=== PATIENT | male | born 1950 | race Caucasian/White ===

== ENCOUNTER 2025-04-13 19:24 | Observation (INO) | payer MEDICARE, OTHER, SELFPAY ==
[2025-04-13 14:00] VITALS: BP 139/78
[2025-04-13 14:36] VITALS: BMI 28.1
--- NOTE | 2025-04-13 14:39 | ED.GENMED ---
History of Present Illness
General
Chief Complaint: Visual Problem
Source: patient
Exam Limitations: none
Time Seen by Provider: 04/13/25 14:12
Nursing documentation reviewed up to this point in time: agreed with
History of Present Illness
History of Present Illness:
74-year-old male with history of hypertension, hemochromatosis, essential tremor on propranolol who presents to the emergency department with his for evaluation after transient vision loss. Patient reports that this occurred yesterday while he
was driving. He reports that he noticed that his upper visual field in the right eye went 'colbert' and this eventually progressed to the entire eye and he reports complete vision loss in the right eye. He says that his vision then gradually return
to normal, total duration of vision loss he says was roughly 10 minutes. He says that his vision is now completely back at baseline. He did not have any associated numbness or weakness in extremities, speech issues, headache, neck pain, or any
other acute issues during this episode. He says he had a similar episode about a year ago that was much shorter and only resulted in partial vision loss in the right eye and so he never sought care at that time. Today he went to his eye
doctor�there he had reassuring examination (reviewed office note) and was referred to the ER with concern for TIA as cause for his symptoms.
Past History
Past History
ED Past Medical History: HTN and Other (Hemachromatosis)
ED Past Surgical History: Orthopedic, Urological and Other (Vein ablation of right lower leg)
Social History
Tobacco: Non-smoker
Drug: None
Personal:
Living: with family
Employment: Employed
Family History
Family History: Other
Review of Systems
Review of Systems
All Other Systems: ROS reviewed and negative except as documented in HPI and ROS
EENT: Reports other (Vision loss)
Respiratory: Denies trouble breathing
Cardiac: Denies chest pain
ABD/GI: Denies abdominal pain
: Denies flank pain
Musculoskeletal: Denies neck pain or back pain
Neurological: Denies dizzy, headache, weakness or numbness
Phy Exam
Physical Exam
Physical Exam:
General: Awake, alert, oriented x3; no acute distress
Head: Normocephalic, atraumatic
Eyes: Conjunctiva normal, EOMI, pupils dilated and sluggish bilaterally (patient just had dilated eye exam in the office--ophthalmology office note scanned into medical record)
Throat: Airway intact, handling secretions
Neck: Trachea midline, supple without meningismus
Lungs: Clear to auscultation bilaterally, no wheezing, rales, rhonchi
Heart: Regular rate and rhythm, no murmurs, gallops, or rubs
Neuro: Cranial nerves intact 2 through 12, speech fluid without dysarthria or aphasia, no limb ataxia, motor and sensory intact in all extremities proximally and distally, ambulatory with no ataxia
Skin: No rash noted
Extremities: No edema in extremities, warm and well-perfused
Scores
Heart Failure Risk
Heart Failure Risk Score: Not Applicable
Heart Score for Chest Pain Patients
STEMI patient?: Not applicable
Withdrawal Assessment of Alcohol
Withdrawal Assessment Completed?: Not applicable
Course
Orders/Labs/Results
Orders:
Orders
04/13/25 14:15
Electrocardiogram (*1) Urgent
Reason for Study: TIA/Stroke
EKG- Treatment ONCE
04/13/25 14:32
CT Head & Neck Angio W/wo IV Urgent
Comment:
Reason For Exam: vision loss R eye
04/13/25 14:43
Complete Blood Count/With Diff Urgent
Comprehensive Metabolic Panel Urgent
04/13/25 16:55
NEUROLOGY CONSULT Urgent
Consulting Provider: German Issa
Was physician already notified: Yes
Aspirin 325 mg PO NOW STA
Clopidogrel Bisulfate [Plavix] 75 mg PO NOW STA
Abnormal Lab Results
04/13/25
14:43
RBC 3.76 L 10^6/uL
(4.70-6.10)
Hct 37.5 L %
(39.0-52.0)
MCV 99.7 H fL
(80.0-94.0)
MCH 35.4 H pg
(27.0-31.0)
Monocytes % 10.2 H %
(1.7-9.3)
Sodium 132 L mmol/L
(135-145)
04/13/25 14:43
04/13/25 14:43
Vital Signs
Initial and Last Documented VS:
Initial Vital Signs
Temp Pulse Resp BP Pulse Ox
36.4 C 56 16 139/78 98
04/13/25 14:00 04/13/25 14:00 04/13/25 14:00 04/13/25 14:00 04/13/25 14:00
Last Documented Vital Signs
Temp Pulse Resp BP Pulse Ox
36.4 C 51 13 139/78 97
04/13/25 14:00 04/13/25 17:30 04/13/25 17:30 04/13/25 14:00 04/13/25 17:30
MDM/Problems Addressed
Differential Diagnosis Includes:
TIA, ocular migraine, seizure
MDM/Problems Addressed:
74-year-old male presents for evaluation after transient vision loss in the right eye yesterday that lasted for about 10 minutes and since has completely resolved. Seen by his zigzag machine operator today and referred to the ER with concern for TIA. I
reviewed ophthalmology note patient had reportedly reassuring examination in the office today including retinal exam. Vitals and exam here in the ER are as documented. Will plan to check CT/CTA of the head and neck. Will check labs and EKG.
Reassess after the above.
ABCD2 score: 1 (low risk)
Labs reviewed: CBC unremarkable, CMP no clinically significant abnormalities. 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 Will treat with aspirin and Plavix.
Discussed with neurology for consultation. Discussed with hospitalist for admission.
Chronic conditions affecting care:
Hypertension
*Radiology
Radiology exam reviewed: radiology read reviewed
*Pulse Oximetry
SaO2: 98
Oxygen Mode of Delivery: Room air
Patient hypoxic: no (98%)
*EKG
Interpreted by ED Provider?: Yes
Comparison EKG: no changes
Heart Rate: 52
Rate: bradycardiac
Rhythm: sinus
[place]: normal axis
Interval: first degree heart block
QRS Pattern: normal QRS
Ischemia: no ischemia (No change from prior)
*Critical Care Note
Total Time (30-74mins, 75-104mins- exclusive of procedures): Not Applicable
Data Reviewed
Review of Other/Old Records Reveals: Progress Notes (Reviewed ophthalmology note from outpatient visit)
Source: patient and spouse
Patient Management
Discussion with other providers: Hospitalist (Discussed with hospitalist) and Automotive Engineer (Discussed with neurologist)
Escalation/DeEscalation of care consider admission/obs:
Admission indicated
ED Attending Note
-
Portions of this chart may have been created with voice recognition software.� Occasional wrong word or��sound alike� substitutions may have occurred due to the inherent limitations of voice recognition software.
Discharge Plan
Departure
Patient Disposition: Admit
Date of Disposition: 04/13/25
Time of Disposition: 17:58
Admit to doctor: Trudy
Presentation/result/management discussed w/ accepting MD/DO: Hospitalist
Discharge Problem:
TIA (transient ischemic attack)
Prescriptions:
No Action
propranolol 60 mg Capsule,Extended Release 24 Hr
60 mg PO BID
amlodipine [Norvasc] 5 mg Tablet
5 mg PO QPM
tamsulosin [Flomax] 0.4 mg Capsule
0.4 mg PO HS
ibuprofen [Advil] 200 mg Tablet
200 mg PO BIDPRN PRN (Reason: mild pain)
zolpidem [Ambien] 10 mg Tablet
10 mg PO HS
losartan 100 mg Tablet
100 mg PO DAILY
lorazepam 0.5 MG tablet
0.5 mg PO DAILYPRN PRN (Reason: anxiety)
Referrals:
German Sanchez MD [Family Provider, Internal Medicine]
Interventions
Interventions:
*Risk Screen - Suicide Last Done: 04/13/25 14:00
*General Assessment Last Done: 04/13/25 14:33
*Neglect/Abuse Screening Last Done: 04/13/25 14:00
*ED- Fall Risk Assessment Last Done: 04/13/25 14:33
*ED COVID-19 Vaccine History Last Done: 04/13/25 14:33
ED- Neurological Assessment Last Done: 04/13/25 14:52
ED-EENT Assessment Last Done: 04/13/25 14:34
ED Swallowing Screen Last Done: 04/13/25 17:16
Discharge Date and Time
Print Language: BULGARIAN
[2025-04-13 14:51] LABS: Hematocrit 37.5 % (39.0-52.0); Hemoglobin 13.3 g/dL (13.0-18.0); Mean Corp Hgb Conc. 35.5 g/dL (33.0-37.0); Mean Corpuscular Volume 99.7 fL (80.0-94.0); Nucleated Red Blood Cells % 0 % (-); Platelet Count 174 10^3/uL (130-400); Red Cell Dist. Width 11.9 % (11.5-14.5)
[2025-04-13 15:05] LABS: Albumin 4.3 g/dl (3.5-5.0); Carbon Dioxide 22 mmol/L (22-30); Chloride 104 mmol/L (98-107)
[2025-04-13 15:15] LABS: ALT (SGPT) 36 U/L (0-50); AST (SGOT) 30 U/L (17-59); Alkaline Phosphatase 73 U/L (38-126); Blood Urea Nitrogen 16 mg/dl (9-20); Calcium 9.3 mg/dl (8.4-10.2); Estimated Creatinine Clearance 98 ml/min; Glucose 97 mg/dl (70-99); Potassium 4.4 mmol/L (3.5-5.1); Sodium 132 mmol/L (135-145); Total Protein 7.2 g/dl (6.3-8.2); eGFR > 60.00
[2025-04-13] MEDS: PLAVIX 75 MG PO (18:08)
[2025-04-13] MEDS: ASPIRIN 325 MG PO (18:08)
--- NOTE | 2025-04-13 18:51 | HPS.HSE ---
Addendum entered and electronically signed by Damien Yates MD 04/13/25 19:39:
This is an addendum to H&P written by Olesya Small on 04/13/2025. �Patient seen and examined independently with PA.
74-year-old male past medical history of hypertension, hemochromatosis, essential tremor, presenting to the emergency room for transient vision loss occurring yesterday. �Upper visual field in the right eye became colbert which progressed to vision
loss in the right eye. �This lasted for 10 minutes with resolution. �No numbness or tingling, focal weakness, speech difficulty, headache, neck pain. �Similar episode 6 months ago.
He saw ophthalmology today who noted no eye abnormalities recommended coming to the hospital.
Vital signs unremarkable.
Labs unremarkable.
CT head shows no acute abnormality. �CTA head and neck shows severe stenosis of the origin of the right vertebral artery. �Plaque in the proximal left ICA less than 50% stenosis. �Mild spinal cord compression and central canal stenosis of cervical
spinal cord.
Patient with amaurosis fugax, unclear if related to right vertebral artery stenosis. �Currently asymptomatic. �Aspirin and Plavix, MRI brain, A1c and lipid panel. �Statin started. �Neurology consulted.
Slight bradycardia secondary to propranolol.
Original Note:
Family Physician
-
Family Physician: German Sanchez
Chief Complaint
-
Transient Vision Loss
History of Present Illness
Patient is a 74 y/o male past medical history of hypertension, essential tremor, insomnia and BPH who presents with transient vision loss. Yesterday while he was driving he describes a colbert curtain coming down over his right visual field. He was
able to pull into a parking lot, and states that eventually he lost all vision in his right eye. He states symptoms lasted about 10 minutes and then resolved. He reports his vision is at baseline. He saw his ophthamologist this morning who noted
a normal eye exam and sent him to the emergency department for evaluation. Patient reports a similar episode about 6 months to a year ago but at that time he only lost vision in the top portion of his visual field.
Medical History
Past Medical History
Past Medical History: Reports Other
Additional Past Medical History:
Essential Hypertension
Essential Tremor
Insomnia
BPH
Hemochromatosis
Past Surgical History: Reports Other
Additional Past Surgical History:
Right Knee Replacement
Shoulder Surgery
Social History
Tobacco: Non-smoker
Alcohol: Other (Two drinks either beer or wine most nights)
Personal:
Family History
Family History: Not pertinent
Allergies / Home Medications
Allergies reflects when Allergies were last updated in [facility].
Home Medications with original date entered in [facility]
Allergy/Medication List:
Allergies
Allergy/AdvReac Type Severity Reaction Status Date / Time
seasonal Allergy nasal Uncoded 04/13/25 14:03
congestion
Home Medications
amlodipine 5 mg tablet (Norvasc) 5 mg PO QPM 04/13/25
ibuprofen 200 mg tablet (Advil) 200 mg PO BIDPRN PRN mild pain 04/13/25
lorazepam 0.5 mg tablet 0.5 mg PO DAILYPRN PRN anxiety 04/13/25
losartan 100 mg tablet 100 mg PO DAILY 04/13/25
propranolol 60 mg capsule,24 hr,extended release 60 mg PO BID 04/13/25
tamsulosin 0.4 mg capsule (Flomax) 0.4 mg PO HS 04/13/25
zolpidem 10 mg tablet (Ambien) 10 mg PO HS 04/13/25
Review of Systems
-
A 12 point ROS was completed and negative except as noted: Yes
Constitutional: Denies Fever or Chills
Respiratory: Denies Cough or Trouble Breathing
Cardiac: Denies Chest Pain or Palpitations
Abdomen/GI: Denies Abdominal Pain, Nausea, Vomiting or Diarrhea
Physical Exam
Vital Signs
Vital Signs
Temp Pulse Resp BP Pulse Ox
97.5 F 51 13 139/78 97
04/13/25 14:00 04/13/25 17:30 04/13/25 17:30 04/13/25 14:00 04/13/25 17:30
Physical Exam
General: Comfortable and Conversant
HEENT: Anicteric, Moist mucous membranes and PERRLA
Respiratory: Clear and Non Labored Respirations
Cardiac: S1/S2, Regular Rhythm and Bradycardia (Slightly)
GI: Soft and Non Tender
Rectal: Deferred by Provider
Musculoskeletal: No Clubbing and No Cyanosis
Skin: Warm and Dry
Neuro: Awake, Alert, Oriented and Nonfocal/grossly intact
Psych: Calm
Laboratory Results
-
04/13/25 14:43
04/13/25 14:43
Laboratory Results
Total Bilirubin 0.9 mg/dl (0.2-1.3) 04/13/25 14:43
AST 30 U/L (17-59) 04/13/25 14:43
ALT 36 U/L (0-50) 04/13/25 14:43
Alkaline Phosphatase 73 U/L (38-126) 04/13/25 14:43
Data Reviewed
-
CT Scan: Report Reviewed by me
Lab Data: Labs Reviewed by me
Impression/Plan
-
Amaurosis Fugax
-Head/Neck CTA with 70% stenosis at origin of right vertebral artery - Unclear if contributing to symptoms
-Consult Neurology
-Check Brain MRI
-Check Lipid Panel and HgbA1c
-Continue aspirin and clopidogrel
Essential Hypertension
-Continue amlodipine and losartan
Essential Tremor
-Continue propranolol
Insomnia
-Continue zolpidem
BPH
-Continue tamsulosin
DVT Proph: SCDs
Code Status: Full Code
[2025-04-13 20:27] VITALS: BP 141/81; BMI 27.2
[2025-04-13] MEDS: INDERAL LA 60 MG PO (22:29)
[2025-04-13] MEDS: FLOMAX 0.4 MG PO (22:29)
[2025-04-13] MEDS: AMBIEN 10 MG PO (22:33)
[2025-04-13 23:00] VITALS: BP 133/72
--- NOTE | 2025-04-14 01:18 | PTCARENOTE ---
Pt received from ER [id number] able to make his needs known.Denies pain or any other complaints.NIH-0,pt denies of any visual problems at this time.Plan of care continued.Sttroke packet given to pt.Call rodriguez in reach.
[2025-04-14 03:35] VITALS: BP 123/77
[2025-04-14 06:52] LABS: Hematocrit 36.8 % (39.0-52.0); Hemoglobin 13.0 g/dL (13.0-18.0); Mean Corp Hgb Conc. 35.3 g/dL (33.0-37.0); Mean Corpuscular Volume 101.7 fL (80.0-94.0); Platelet Count 161 10^3/uL (130-400); Red Cell Dist. Width 11.7 % (11.5-14.5)
[2025-04-14 07:24] LABS: Blood Urea Nitrogen 12 mg/dl (9-20); Calcium 9.1 mg/dl (8.4-10.2); Carbon Dioxide 24 mmol/L (22-30); Chloride 107 mmol/L (98-107); Estimated Creatinine Clearance 86 ml/min; Glucose 93 mg/dl (70-99); HDL Cholesterol 48 mg/dl; LDL Cholesterol, Calculated 116 mg/dl; Magnesium 2.1 mg/dl (1.6-2.3); Potassium 4.3 mmol/L (3.5-5.1); Sodium 135 mmol/L (135-145); Very Low Density Lipoprotein 15 mg/dl (0-30); eGFR > 60.00
[2025-04-14 07:41] VITALS: BP 134/71
[2025-04-14] MEDS: INDERAL LA 60 MG PO (08:19)
[2025-04-14] MEDS: COZAAR 100 MG PO (08:19)
[2025-04-14] MEDS: LOW STRENGTH ASPIRIN 81 MG PO (08:19)
[2025-04-14] MEDS: PLAVIX 75 MG PO (08:19)
[2025-04-14 10:00] LABS: Glycohemoglobin (HgbA1c) 4.6 % (4.0-5.6)
[2025-04-14 11:04] VITALS: BP 142/92
[2025-04-14 11:32] VITALS: BP 144/86
--- NOTE | 2025-04-14 11:56 | CM ---
Met with patient and at bedside
Pharmacy verified: [facility] @ [address] [facility]
Lives w/ ; multilevel home; bedroom and bathroom on 1st floor; bathroom has shower stall w/ built in seat
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
No SNF or Home Health utilization history
will transport home
HERNANDEZ form explained; form signed @ [id number]
Plan: anticipate discharge to home; Case Management will monitor and support needs/services if recommended
[2025-04-14 13:41] VITALS: BP 137/83; PULSE 62; O2SAT 98
--- NOTE | 2025-04-14 14:25 | W.PN.UPDATE ---
Update Note
Progress Note Update
Seen and examined independently. Agree with the plan set forth by the resident. Discussed. See changes in my documentation
74-year-old man with symptoms of right eye transient vision loss. This has happened before
On examination patient is awake alert oriented x 3
Eye no visual field defect,
No facial droop
Cardiovascular system S1-S2 appreciated
Chest clear to auscultation
Abdomen soft and nontender
Neuroexam is mostly nonfocal
CTA neck-severe stenosis at the origin of the right vertebral artery more than 70%. Mild calcific atherosclerotic plaque in the proximal left ICA causing less than 50% diameter stenosis. Mild spinal cord compression C4/C5, C5/C6, C6/C7. Severe
right neural foraminal narrowing C5/C6. Asymmetric soft tissue in the right side of the oropharynx in the left vallecula
Head CTA-mild calcific atherosclerotic plaque in both intracranial internal carotid arteries. Mild periventricular and subcortical white matter leukoaraiosis in the both cerebral hemispheres. Mildly diffuse cerebral and cerebellar volume loss.
MRI of the brain-no acute infarct
# Transient vision loss
Possible TIA
Continue aspirin and Plavix with statin
MRI without any acute stroke
Patient does have atherosclerotic disease
Will discuss with neurology if patient needs further intervention with neurointerventional list for that right vertebral artery stenosis
May need routine echo
# Asymmetric soft tissue in the right side of the oropharynx-ENT evaluation as outpatient discussed with the patient
# Severe neural foraminal narrowing C5/C6 and mild spinal cord compression other other levels-outpatient spine evaluation discussed with the patient
# Essential tremors-continue propranolol
# Hypertension-continue losartan and propranolol, amlodipine
# Anxiety-continue lorazepam
# Enlarged prostate-continue Flomax
# Hemochromatosis
# Insomnia-continue Ambien
# DVT prophylaxis-Lovenox
# Full code
D/W NEuro
--- NOTE | 2025-04-14 14:58 | W.PN.HOSP.TC ---
Today's Communication/Plan
-
Risk factor modification
Neuro eval
Assessment / Plan
Assessment / Plan
IMPRESSION: 74 year old male with history or hemochromatosis, HTn, essential tremor who presents with transient right eye vision loss (10 mins) with spontaneous resolution.
Transient right eye vision loss
- Possible TIA vs amaurosis fugax
- Continue aspirin and Plavix with statin
- MRI without any acute stroke
- atherosclerotic disease per CTA head and neck. R vertebral artery stenosis >70%, proximal ICA plaque <50%. Risk factor modification discussed
- Will discuss with neurology if patient needs further intervention with neurointerventional list for that right vertebral artery stenosis
- May need routine echo
Asymmetric soft tissue in the right side of the oropharynx:
- Requires ENT evaluation as outpatient
Hypercholesterolemia:
- LDL 114
- Continue Atorvastatin
# Severe neural foraminal narrowing C5/C6 and mild spinal cord compression other other levels-outpatient spine evaluation discussed with the patient
# Essential tremors-continue propranolol
# Hypertension-continue losartan and propranolol, amlodipine
# Anxiety-continue lorazepam
# Enlarged prostate-continue Flomax
# Hemochromatosis
# Insomnia-continue Ambien
# DVT prophylaxis-Lovenox
# Full code
Anticipated Discharge: Today
Subjective/Interval History
-
Date of Service: April 14, 2025
No acute overnight events
Objective Data
-
Labs:
Laboratory Results
04/14/25
06:33
WBC 5.0
Hgb 13.0
Hct 36.8 L
Plt Count 161
Sodium 135
Potassium 4.3
Chloride 107
Carbon Dioxide 24
BUN 12
Creatinine 0.8
Glucose 93
Calcium 9.1
Vital Signs:
Vital Signs
Temp Pulse Resp BP Pulse Ox
97.7 F 57 16 144/86 96
04/14/25 11:32 04/14/25 11:32 04/14/25 11:32 04/14/25 11:32 04/14/25 11:32
I&O
04/13/25 04/14/25 04/15/25
06:59 06:59 06:59
Intake Total 480 / 480
Balance 480 / 480
Review of Systems
-
History Source: Patient
EENT: Denies Blurry Vision or Eye Pain
Respiratory: Denies Trouble Breathing or Pleurisy
Cardiac: Denies Chest Pain or Palpitations
Abdomen/GI: Denies Abdominal Pain, Nausea, Vomiting, Diarrhea or Constipated
Genitourinary: Denies Dysuria, Difficulty Voiding or Bleeding
Neuro: Reports Tremors (essential tremor at baseline); Denies Dizzy, Headache, Weakness or Numbness
Psych: Reports Anxious
Physical Exam
-
General: Well Developed, Well Nourished, No Apparent Distress and Comfortable
HEENT: Normocephalic, Atraumatic and Moist Mucous Membranes
Respiratory: Clear to Auscultation and Non Labored Respirations; Negative Wheezes, Rales, Rhonchi or Crackles
Cardiac: Regular Rhythm and S1/S2; Negative Murmur, Rub or Calf Tenderness
GI: Soft, Nontender, Nondistended and Normal Bowel Sounds
Neuro: Awake, Alert, Oriented, Tremors (left hand fine tremor), Nonfocal/Grossly Intact and Other (moving all extremities equally); Negative Slurred Speech or Facial Droop
Psych: Anxious
[2025-04-14 15:00] VITALS: BP 128/67
--- NOTE | 2025-04-14 15:32 | PTOTSP ---
Speech therapy
Presentation: Patient was fully oriented and participatory. Patient's speech and language appeared to be WNL during conversation. Patient denied any communicative deficits.
Swallowing Function: Patient was observed with several presentations of thin liquids (cup), puree, and regular consistency solids in which patient appeared to tolerate as he did not exhibit any overt clinical s/sx of aspiration or difficulty with
mastication/ manipulation. Patient denied dysphagia complaints.
Per RN, patient tolerated medications whole with thin liquids.
Recommendations:
1) Continuation of regular consistency solids and thin liquids
2) Medications whole with thin liquids
3) Standard aspiration precautions
Plan: No further ROUTE CARRIER intervention is indicated at this time as patient appears to be demonstrating baseline functioning. Please re-consult speech if clinically indicated
[2025-04-14] MEDS: LIPITOR 40 MG PO (16:34)
[2025-04-14] MEDS: NORVASC 5 MG PO (16:34)
--- NOTE | 2025-04-14 17:49 | CON.NEURO ---
Neuro Assessment/Plan
Assessment
brain MRI imgs rev'd, no stroke.
CTA head/neck imgs and rept rev'd, right carotid is clean, left carotid minimal plaque, Rt vertebral 70% focal stenosis
Amaurosis fugax (TIA)
~1/3 of the time there is a hot ipsilateral carotid which is not the case here. This TIA could be due to carotid or retinal artery
stroke 2/2 prevention agree ASA 81, Lipitor 40, 21 days of plavix
rt vertebral artery stenosis, asymptomatic, no indication for stenting
He is already scheduled to see his outpatient textile knitter, Dr Hennessy, on Wednesday and there is no need to keep him for an ECHO.
Consultation
Order
Date of Consultation: 04/14/25
Requesting Provider:
Reason for Consult:
Subjective/Objective
Subjective Data
Date of Service: April 14, 2025
from h&p:
Patient is a 74 y/o male past medical history of hypertension, essential tremor, insomnia and BPH who presents with transient vision loss. Yesterday while he was driving he describes a colbert curtain coming down over his right visual field. He was
able to pull into a parking lot, and states that eventually he lost all vision in his right eye. He states symptoms lasted about 10 minutes and then resolved. He reports his vision is at baseline. He saw his ophthamologist this morning who noted
a normal eye exam and sent him to the emergency department for evaluation. Patient reports a similar episode about 6 months to a year ago but at that time he only lost vision in the top portion of his visual field.
Objective Data
Vital Signs
Temp Pulse Resp BP Pulse Ox
36.6 C 60 16 128/67 97
04/14/25 15:00 04/14/25 15:00 04/14/25 15:00 04/14/25 15:00 04/14/25 15:00
Lab Results
04/14/25 06:33
04/14/25 06:33
Sodium 135 mmol/L (135-145) 04/14/25 06:33
Potassium 4.3 mmol/L (3.5-5.1) 04/14/25 06:33
BUN 12 mg/dl (9-20) 04/14/25 06:33
Glucose 93 mg/dl (70-99) 04/14/25 06:33
Calcium 9.1 mg/dl (8.4-10.2) 04/14/25 06:33
LDL Cholesterol, Calc 116 mg/dl 04/14/25 06:33
Patient Allergies
pollen extracts Allergy (Verified 04/13/25 20:13)
SEASONAL-NASAL CONGESTION
Physical Exam
-
AAOx3, speech clear, language intact
VFF, EOMI, face symmetric
full strength b/l UE/LE
Medications
-
Home Medications
�Medication �Instructions �Recorded
lorazepam 0.5 mg tablet 0.5 mg PO DAILYPRN PRN anxiety 04/13/25
zolpidem 10 mg tablet (Ambien) 10 mg PO HS 04/13/25
amlodipine 5 mg tablet (Norvasc) 5 mg PO QPM Blood pressure #0 tabs 04/14/25
aspirin 81 mg chewable tablet 81 mg PO DAILY Blood clot 04/14/25
prevention/tx #0 tabs
atorvastatin 40 mg tablet 40 mg PO QPM High cholesterol #30 04/14/25
tabs
clopidogrel 75 mg tablet 75 mg PO DAILY Blood clot 04/14/25
prevention/tx #20 tabs
losartan 100 mg tablet 100 mg PO DAILY Blood pressure #0 04/14/25
tabs
propranolol 60 mg capsule,24 60 mg PO BID tremor #0 caps 04/14/25
hr,extended release
tamsulosin 0.4 mg capsule (Flomax) 0.4 mg PO HS Urinary issue #0 caps 04/14/25
--- NOTE | 2025-04-14 18:21 | W.DCSUMMARY ---
Discharge Summary
Discharge Data
Date of Admission: 04/13/25
Date of Discharge: 04/14/25
-
Pending Results: No
Hospital Course
Discharging Physician : Tanja Merino MD., Liu Ty MD.
Disposition : Home
Primary care physician : German Sanchez MD
Principal Discharge diagnosis : Amaurosis Fugax, Transient ischemic attack, hypercholesterolemia, asymmetric oropharyngeal finding on CT, Right vertebral artery stenosis
Chronic Discharge diagnosis : Neural foraminal narrowing with spinal cord compression, essential tremor, Essential hypertension, anxiety, BPH, hemochromatosis, insomnia
Hospital Course :
74 year old male with history or hemochromatosis, HTN, essential tremor who presented with transient right eye vision loss (10 mins) with spontaneous resolution. History of similar occurrence 6 months ago with partial visual loss lasting 3mins with
complete resolution.
On arrival and throughout stay, patient's vitals remained stable with CBC, CMP unremarkable. Lipid panel showed LDL 114. Neurological status remained normal. Chronic home medications were continued as appropriate.
Risk factor modification discussed.
The following changes to medications prescribed:
- Continue Atorvastatin 40mg daily.
- continue Aspirin 81mg daily indefinitely
- continue Clopidogrel for total of 21 days (through 05/04/2025)
- Follow up with cardiology, ENT, neurology, orthopedic surgery and PCP
- Check LFT and Lipid panel in 3 months with PCP
Important imaging findings :
MRI Brain 04/14/2025:
Mild age-related parenchymal atrophy. T2/FLAIR hyperintense signal foci in the white matter of the bilateral cerebral hemispheres, most compatible with mild chronic microangiopathic ischemia. No mass effect, midline shift, or extra axial collection.
No abnormal signal intensity on diffusion-weighted images.
The vascular flow voids at the skull base are unremarkable, as far as visualized.
Mild mucosal thickening of the bilateral frontal and ethmoid sinuses and the mastoid air cells are clear.
No MRI evidence for an acute infarct.
Head/Neck CTA 04/13/2025:
NECK CTA:
1. Severe stenosis (greater than 70% diameter) at the origin of the right vertebral artery.
2. Mild calcific atherosclerotic plaque in the proximal left ICA causing less than 50% diameter stenosis.
3. Mild spinal cord compression and central canal stenosis at C4/C5, C5/C6, and C6/C7.
4. Severe right neural foraminal narrowing at C5/C6.
5. Asymmetric soft tissue in the right side of the oropharynx and in the left vallecula. Diagnostic possibilities are (1) squamous cell carcinoma or (2) benign inflammatory mucosal thickening.
HEAD CTA:
1. Mild calcific atherosclerotic plaque in both intracranial internal carotid arteries.
2. Mild periventricular and subcortical white matter leukoaraiosis in both cerebral hemispheres.
3. Mild diffuse cerebral and cerebellar volume loss.
Discharge Plan
-
Patient Disposition: Home (Routine Discharge)
Discharge Diagnosis/Procedures: TIA
Severe neural foraminal narrowing C5-C6
Hyperlipidemia
Asymmetric soft tissue in the right side of the oropharynx
Essential tremors
Hypertension
Anxiety and
Enlarged prostate
Insomnia
Diet: 2 Gram Sodium
Activity: As tolerated
Driving Restrictions: As prior to admission
Blood Work: Cholesterol levels and LFTs in 3 months, result to PCP
Others Tests: Echo as outpatient
Instructions: Transient ischemic attack
Referrals:
Steve Hennessy MD [Active, Cardiology] - 04/17/25
Referral Note: You need an echo and follow up
Juan Rahman DO [Active, ENT]
Referral Note: Asymmetric soft tissue in the right side of the oropharynx:
German Issa MD [Active, Neurology]
Mac Garrido MD [Active, Orthopedics]
Referral Note: Severe neural foraminal narrowing C5/C6 and mild spinal cord compression other other levels
German Sanchez MD [Family Provider, Internal Medicine]
Additional Discharge Medication Instructions: Stop ibuprofen. Take Clopidogrel daily for 20 more days. Take Atorvastatin daily. Continue aspirin indefinitely.
Prescriptions:
New
atorvastatin 40 mg Tablet
40 mg PO QPM Qty: 30 0RF
clopidogrel 75 mg Tablet
75 mg PO DAILY Qty: 20 0RF
aspirin 81 mg Tablet,Chewable
81 mg PO DAILY Qty: 0 0RF
Continued
zolpidem [Ambien] 10 mg Tablet
10 mg PO HS
lorazepam 0.5 MG tablet
0.5 mg PO DAILYPRN PRN (Reason: anxiety)
propranolol 60 mg Capsule,Extended Release 24 Hr
60 mg PO BID Qty: 0 0RF
amlodipine [Norvasc] 5 mg Tablet
5 mg PO QPM Qty: 0 0RF
tamsulosin [Flomax] 0.4 mg Capsule
0.4 mg PO HS Qty: 0 0RF
losartan 100 mg Tablet
100 mg PO DAILY Qty: 0 0RF
Discontinued
ibuprofen [Advil] 200 mg Tablet
200 mg PO BIDPRN PRN (Reason: mild pain)
Discharge Orders:
Discharge Patient (As Directed); Ordered 04/14/25
Ordered By: Tanja Merino
Discharge Date and Time
Discharge Date/Time: 04/14/25 17:39
Print Language: URUGUAYAN
== END 2025-04-14 17:39 | disposition home or self-care (01) ==
LOC: 4 EAST ACU 19:24
PROVIDERS: Physician Assistant Medical; Student in an Organized Health Care Education/Training Program; ADMITTING PHYSICIAN Hospitalist; ATTENDING PHYSICIAN Hospitalist; EMERGENCY PHYSICIAN Emergency Medicine; FAMILY PHYSICIAN Internal Medicine; OTHER PHYSICIAN Psychiatry & Neurology Clinical Neurophysiology
DX: G45.3 Amaurosis fugax (principal); E78.00 Pure hypercholesterolemia, unspecified; R93.89 Abnormal findings on diagnostic imaging of other specified body structures; G25.0 Essential tremor; I10 Essential (primary) hypertension; F41.9 Anxiety disorder, unspecified; E83.119 Hemochromatosis, unspecified; G47.00 Insomnia, unspecified; G95.20 Unspecified cord compression; M48.02 Spinal stenosis, cervical region; N40.0 Benign prostatic hyperplasia without lower urinary tract symptoms; Z79.899 Other long term (current) drug therapy; Z79.02 Long term (current) use of antithrombotics/antiplatelets; Z79.82 Long term (current) use of aspirin
CPT/HCPCS: 70496; 70498; 70551; 80048; 80053; 80061; 83036; 83735; 85025; 85027; 92610; 93005; 97161; 97165; 99285; G0378; Q9967

== ENCOUNTER 2025-05-14 06:30 | Day surgery (SDC) | payer MEDICARE, OTHER, SELFPAY ==
[2025-05-07 14:19] VITALS: BMI 27.8
[2025-05-14] VITALS (11 sets, daily range): BP systolic 103–140; BP diastolic 72–85; BMI 27.8
[2025-05-14] MEDS: NORMOSOL-R/PLASMALYTE-A 1000 IV (09:55)
[2025-05-14] MEDS: DILAUDID 0.25 MG IV ×2 (13:14→13:29)
[2025-05-14] MEDS: ROXICODONE 5 MG PO (14:16)
--- NOTE | 2025-05-14 15:49 | OR.RPT ---
Operative Report
Operative Report
Operative Report
Patient name: Nahid Storye
Date of : 1950

Date of operation: 05/14/2025
Preoperative diagnosis:
1. Throat mass
2. Tonsil asymmetry
Postoperative diagnosis:
1. Throat mass
2. Tonsil asymmetry
Operation/procedures performed:
1. Direct laryngoscopy with biopsy
2. Rigid esophagoscopy
3. Flexible bronchoscopy
Surgeon: Juan Rahman DO
Anesthesia: General, 7.0 ETT
Anesthesiologist: Vivi
Surgical indications: this is a 74-year-old man who presented to the otolaryngology department with right tonsil and right base of tongue asymmetry and fullness that was identified incidentally on a CTA head and neck that was performed for workup
of amaurosis fugax about 1 month prior. The patient had no dysphagia, dysphonia, changes in appetite, fevers chills or weight loss. Flexible laryngoscopy in the office demonstrated obvious right tonsil and right base of tongue asymmetry and
fullness with no obvious exophytic mass. Given the marked asymmetry radiographically and endoscopically, recommendation was made to proceed to the operating room for direct laryngoscopy with biopsy, esophagoscopy and bronchoscopy. The risks
benefits and alternatives were discussed with the patient and informed written consent was provided.
Details of Procedure: The patient was met in the preoperative holding area where informed written consent was reviewed and all questions were answered to the satisfaction of the patient and the family. The patient was then brought back to the
operating room and transferred supine on the operating table. General anesthesia was induced and the patient was intubated without difficulty using a 7.0 endotracheal tube by the anesthesia staff. The tube was secured to the left corner of the
mouth and the table was rotated 90 degrees away from anesthesia. A surgical timeout was performed confirming the necessary perioperative information. A dental guard was then placed to protect the upper dentition. A 3.8 mm flexible bronchoscope
attached to an [employer] mobile viewing cart was used to perform the flexible bronchoscopy through the endotracheal tube after the ventilation circuit was disconnected. The distal trachea and laura were normal. The bilateral proximal main bronchi
were normal. The right distal main and secondary and tertiary bronchi were visualized normal. The left distal main and secondary and tertiary bronchi were normal. The bronchoscope was removed and the anesthesia circuit was reconnected. Next, a
rigid esophagoscope was used to perform rigid esophagoscopy. The esophageal inlet and cervical esophagus were normal.
Next a laryngoscope was used to perform direct laryngoscopy. The right tonsil and right base of tongue were noted to be larger and more full than the left base of tongue and left tonsil. The uvula and posterior pharyngeal wall were normal. The
hypopharynx was normal. Bilateral piriform sinuses are normal. The arytenoids, aryepiglottic folds, false and true vocal folds and subglottis was normal. The epiglottis was normal. The vallecula was normal. Attention was then turned again to
the right tonsil and base of tongue. Several biopsies were taken of the right tonsil, right base of tongue and left base of tongue. These were sent for permanent pathology. Hemostasis was achieved with an Afrin-soaked pledget. After adequate
hemostasis was confirmed the procedure was terminated. The patient was turned back to the anesthesia team where he emerged safely from anesthesia and was extubated without difficulty. The patient was taken the PACU in stable condition.
Complications: None immediately present
Blood loss: 10 cc
Disposition: stable to PACU followed by discharge to home
== END 2025-05-14 14:55 | disposition home or self-care (01) ==
LOC: SDS 06:30
PROVIDERS: ATTENDING PHYSICIAN Student in an Organized Health Care Education/Training Program; FAMILY PHYSICIAN Internal Medicine
DX: K14.9 Disease of tongue, unspecified (principal); J39.2 Other diseases of pharynx; L57.0 Actinic keratosis
CPT/HCPCS: 31535; 31622; 86900; 86901; 88305

== ENCOUNTER → 2025-06-25 11:06 | Outpatient (REF) | payer MEDICARE, OTHER, SELFPAY | LOC: RAD 11:06 | PROVIDERS: ATTENDING PHYSICIAN Student in an Organized Health Care Education/Training Program; FAMILY PHYSICIAN Internal Medicine; REFERRING PHYSICIAN Internal Medicine Cardiovascular Disease | DX: J39.2 Other diseases of pharynx (principal) | CPT/HCPCS: 70491; Q9967 ==